=== PATIENT | female | born 1950 ===

== ENCOUNTER 2022-11-29 05:30 | Day surgery (SDC) | payer OTHER ==
[~2022-11-29] VITALS: Ht 152.4 cm; Wt 66.2 kg
[~2022-11-29 05:30] MED LIST: LIPITOR40 MG PO
[2022-11-29] MEDS ORDERED: IBU600 MG PO (08:47)
== END 2022-11-29 13:45 | disposition home or self-care (01) ==
LOC: CIR.AMB 05:30
PROVIDERS: ATTEND Obstetrics & Gynecology Gynecology
DX: N84.0 Polyp of corpus uteri (principal); N95.0 Postmenopausal bleeding; Z20.822 Contact with and (suspected) exposure to COVID-19; E78.5 Hyperlipidemia, unspecified